=== PATIENT | male | born 1975 | race Two or more races ===

== ENCOUNTER 2019-09-24 10:35 | Emergency (ER) | payer SELFPAY ==
[~2019-09-24] VITALS: Ht 167.6 cm; Wt 104.3 kg
[2019-09-24 11:08] VITALS: BP 156/98
== END 2019-09-24 11:26 | disposition home or self-care (01) ==
LOC: ER 10:35 → EDBD 10:35 → ER 11:26
DX: F41.9 Anxiety disorder, unspecified (principal)
CPT/HCPCS: 71046; 93005